=== PATIENT | female | born 1980 ===

== ENCOUNTER 2018-03-13 21:00 | Emergency (ER) | payer OTHER ==
[2018-03-13 21:01] VITALS: BMI 27.4
[2018-03-13 21:26] VITALS: BP 117/74; PULSE 73; RESP 18; TEMP 98.3; O2SAT 98
[2018-03-13] MEDS ORDERED: Sodium Chloride 0.9% 1,000 ML IV STA (21:42)
[2018-03-13 22:37] LABS: BASO % 0.6 % (0.0-2.0); EOS # 0.1 K/uL (0.0-0.7); EOS % 1.5 % (0.0-4.0); HEMOGLOBIN 12.3 g/dL (12.0-16.0); LYMPH % 42.7 % (20.0-40.0); MEAN CELL VOLUME 90.5 fl (81.0-99.0); MEAN CORPUSCULAR HEMOGLOBIN 30.2 pg (27.0-31.0); MEAN CORPUSCULAR HGB CONC 33.4 g/dL (33.0-37.0); MEAN PLATELET VOLUME 8.1 fl (7.2-11.7); MONO # 0.6 K/uL (0.0-0.8); NEUT # 3.3 K/uL (1.8-7.0); NEUT % 47.2 % (50.0-75.0); NRBC % 0.1 % (0.0-0.0); RBC 4.06 Mil/uL (3.80-5.20); RED CELL DISTRIBUTION WIDTH 12.4 % (11.5-14.5)
[2018-03-13 22:46] LABS: ALB/GLOB RATIO 1.1 (1.0-2.1); ALBUMIN 4.5 g/dL (3.5-5.0); ALT/SGPT 18 U/L (9-52); AST/SGOT 33 U/L (14-36); BLOOD UREA NITROGEN 15 mg/dl (7-17); CALCIUM 9.7 mg/dL (8.4-10.2); GFR NON-AFRICAN AMERICAN > 60; LIPASE 105 U/L (23-300)
[2018-03-13 22:46] LABS: SQUAMOUS EPITHIAL 4 /hpf (0-5); URINE BILIRUBIN NEGATIVE (NEGATIVE); URINE BLOOD MODERATE (NEGATIVE); URINE CALCIUM OXALATE CRYSTALS MOD /hpf (<OCC); URINE CLARITY CLOUDY (Clear); URINE COLOR YELLOW (YELLOW); URINE GLUCOSE (UA) NEG (NEGATIVE); URINE LEUKOCYTE ESTERASE NEG Leu/uL (Negative); URINE PROTEIN NEGATIVE (NEGATIVE); URINE UROBILINOGEN 0.2-1.0 mg/dL (0.2-1.0)
--- NOTE | 2018-03-14 00:12 | ED PDOC ---
HPI: Abdomen Time Seen by Provider: 03/13/18 21:28 Chief Complaint (Nursing): Abdominal Pain Chief Complaint (Provider): Abdominal Pain History Per: Patient History/Exam Limitations: no limitations Onset/Duration Of Symptoms: Days (x4) Outside of [place] travel?: No Associated Symptoms: Nausea Additional Complaint(s): 37 y/o female presents to the ED for evaluation of abdominal pain with associated nausea, onset x4 days ago. Patient reports pain is a burning sensation that worsens with eating. Patient states she took pepto bismol 2 hours [employer] with no relief. She has a history of similar pain but states it normally resolves in seconds to minutes; it has never lasted this long in the past. Denies fever, diarrhea, vomiting, urinary symptoms, recent travel, sick contacts, vaginal bleeding or discharge. Her last normal menstrual period was March 01. PMD: Rohith Past Medical History Reviewed: Historical Data, Nursing Documentation, Vital Signs Vital Signs: Last Vital Signs Temp 98.3 F 03/13/18 21:24 Pulse 73 03/13/18 21:24 Resp 18 03/13/18 21:24 BP 117/74 03/13/18 21:24 Pulse Ox 98 03/13/18 21:24 - Medical History PMH: No Chronic Diseases - Surgical History Surgical History: (x3) Other surgeries: Tubal ligation - Family History Family History: States: Unknown Family Hx - Home Medications Home Medications: Ambulatory Orders Medication Instructions Recorded Nitrofurantoin Macrocrystals 100 mg PO BID #10 cap 01/23/14 [Macrobid] Phenazopyridine HCl [Pyridium] 100 mg PO BID PRN #6 tab 01/23/14 Naproxen/Esomeprazole Mag [Vimovo 1 tab PO BID PRN #20 tab 03/14/18 20 mg-500 mg] - Allergies Allergies/Adverse Reactions: Allergies Allergy/AdvReac Type Severity Reaction Status Date / Time No Known Allergies Allergy Verified 03/13/18 21:24 Review of Systems ROS Statement: Except As Marked, All Systems Reviewed And Found Negative Constitutional: Negative for: Fever Gastrointestinal: Positive for: Nausea, Abdominal Pain. Negative for: Vomiting, Diarrhea Genitourinary Female: Negative for: Dysuria, Frequency, Incontinence, Vaginal Discharge, Vaginal Bleeding Physical Exam - Reviewed Nursing Documentation Reviewed: Yes Vital Signs Reviewed: Yes - Physical Exam Comments: GENERAL APPEARANCE: Patient is awake, alert, oriented x 3, in no distress. Resting comfortably SKIN: Warm, dry; (-) cyanosis. EYES: (-) conjunctival pallor, (-) scleral icterus. ENMT: Mucous membranes moist. Airway patent (-) stridor. NECK: Supple, FROM CHEST AND RESPIRATORY: (-) rales, (-) rhonchi, (-) wheezes; breath sounds equal bilaterally. Respirations nonlabored. HEART AND CARDIOVASCULAR: (-) irregularity ABDOMEN AND GI: Soft (-) distention. Bowel sounds active x4; (+) tenderness in RUQ, Epigastric and RLQ. (-) guarding, (-) rebound, (-) palpable masses, (-) CVA tenderness. EXTREMITIES: (-) deformity NEURO AND PSYCH: Mental status as above; (-) focal findings. Gait: steady. Speech: clear. (-) facial asymmetry (-) aphasia - Laboratory Results Result Diagrams: 03/13/18 22:25 03/13/18 22:25 Lab Results: Total Bilirubin 0.3 mg/dl (0.2-1.3) 03/13/18 22:25 AST 33 U/L (14-36) 03/13/18 22:25 ALT 18 U/L (9-52) 03/13/18 22:25 Alkaline Phosphatase 79 U/L (38-126) 03/13/18 22:25 Total Protein 8.5 G/DL (6.3-8.2) H 03/13/18 22:25 Albumin 4.5 g/dL (3.5-5.0) 03/13/18 22:25 Globulin 4.0 gm/dL (2.2-3.9) H 03/13/18 22:25 Albumin/Globulin Ratio 1.1 (1.0-2.1) 03/13/18 22:25 Lipase 105 U/L (23-300) 03/13/18 22:25 Urine Color Yellow (YELLOW) 03/13/18 22:26 Urine Clarity Cloudy (Clear) 03/13/18: Urine pH 6.0 (5.0-8.0) 03/13/18 22: Ur Specific Monroe 1.028 (1.003-1.030) 03/13/18 22:26 Urine Protein Negative mg/dL (NEGATIVE) 03/13/18 22: Urine Glucose (UA) Neg mg/dL (NEGATIVE) 03/13/18 22: Urine Ketones Negative mg/dL (NEGATIVE) 03/13/18 22:26 Urine Blood Moderate (NEGATIVE) 03/13/18 22:26 Urine Nitrate Negative (NEGATIVE) 03/13/18 22: Urine Bilirubin Negative (NEGATIVE) 03/13/18 22: Urine Urobilinogen 0.2-1.0 mg/dL (0.2-1.0) 03/13/18 22: Ur Leukocyte Esterase Neg Caleb/uL (Negative) 03/13/18 22: Urine RBC (Auto) 23 /hpf (0-3) H 03/13/18 22: Urine Microscopic WBC 2 /hpf (0-5) 03/13/18 22: Ur Squamous Epith Cells 4 /hpf (0-5) 03/13/18 22: Calcium Oxalate Crystal Mod /hpf (<OCC) H 03/13/18 22:26 Urine POC: Negative - ECG O2 Sat by Pulse Oximetry: 98 (RA) Pulse Ox Interpretation: Normal Medical Decision Making Medical Decision Making: Time: 21:45 Initial Impression: abdominal pain, r/o gallbladder disease Initial Plan: * CMP * Lactic acid * Lipase * CBC w/ diff * IV Fluids * Pepcid 40 mg * Toradol 30 mg * Zofran 4 mg * UA * US Gallbladder 2330 CBC and CMP grossly unremarkable. U/A (+) hematuria Patient resting comfortably awaiting U/S evaluation. 0120 Patient in U/S. 0210 U/S report per [facility] IMPRESSION: unremarkable exam. On re-evaluation, patient reports resolution of symptoms. On exam, patient remains AAOx3, in no acute distress. Lungs clear to auscultation, cardiac RRR, abdomen soft, non-tender, repeat neuro exam shows no focal findings. Vitals stable. Lab /Diagnostic results d/w the patient in great detail. Diagnosis of nausea and abdominal pain- resolved, hematuria d/w the patient. Based on history, exam and diagnostic results, plan will be for outpatient follow up with PMD/GI/urology. Patient instructed to follow-up with pmd / referral provided / the clinic in 1-2 days without fail. Advised to take medication as prescribed. Return to the emergency room at any time for any new or worsening symptoms. Patient states she fully agrees with and understands discharge instructions. States that she agrees with the plan and disposition. Verbalized and repeated discharge instructions and plan. I have given the patient opportunity to ask any additional questions. ---- Scribe Attestation: Documented by Richard Todd acting as a scribe for Renae Mandel PA-C. Provider Scribe Attestation: All medical record entries made by the Scribe were at my direction and perso isabella dictated by me. I have reviewed the chart and agree that the record accurately reflects my personal performance of the history, physical exam, medical decision making, and the department course for this patient. I have also personally directed, reviewed, and agree with the discharge instructions and disposition. Disposition - Clinical Impression Clinical Impression: Abdominal pain, Hematuria, Nausea - Patient ED Disposition Is Patient to be Admitted: No Counseled Patient/Family Regarding: Studies Performed, Diagnosis, Need For Followup, Rx Given - Disposition Referrals: Carlos Newberry MD [Family Provider] - Anders Olivarez MD, PhD [Staff Provider] - Anders Bazan Jr., MD [Staff Provider] - Disposition: Routine/Home Disposition Time: 02:40 Condition: STABLE Additional Instructions: The emergency medical care you received today was directed at your acute symptoms. If you were prescribed any medication, please fill it and take as directed. It may take several days for your symptoms to resolve. Return to the Emergency Department if your symptoms worsen, do not improve, or if you have any other problems. Please contact your doctor in 2 days for re-evaluation and follow up / or call one of the physicians/clinics you have been referred to that are listed on the Patient Visit Information form that is included in your discharge packet. Bring any paperwork you were given at discharge with you along with any medications you are taking to your follow up visit. Our treatment cannot replace ongoing med ical care by a primary care provider (PCP) outside of the emergency department. Prescriptions: Naproxen/Esomeprazole Mag [Vimovo 20 mg-500 mg] 1 tab PO BID PRN #20 tab PRN Reason: abdominal pain Instructions: Blood in the Urine (Hematuria) in Adults, Acute Abdomen (Belly Pain), Adult (DC), Nausea and Vomiting, Adult (DC) Forms: [place] ([place]an) Print Language: ESTONIAN - POA Present On Arrival: None Results - Lab Results Lab Results: 03/13/18 03/13/18 03/13/18 22:26 22:25 22:25 WBC RBC Hgb Hct MCV MCH MCHC RDW Plt Count MPV Neut % (Auto) Lymph % (Auto) Warren % (Auto) Eos % (Auto) Baso % (Auto) Neut # (Auto) Lymph # (Auto) Warren # (Auto) Eos # (Auto) Baso # (Auto) Sodium 138 Potassium 3.9 Chloride 100 Carbon Dioxide 24 Anion Gap 18 BUN 15 Creatinine 0.7 Est GFR ( Amer) > 60 Est GFR (Non-Af Amer) > 60 Random Glucose 87 Lactic Acid 0.7 Calcium 9.7 Total Bilirubin 0.3 AST 33 ALT 18 Alkaline Phosphatase 79 Total Protein 8.5 H Albumin 4.5 Globulin 4.0 H Albumin/Globulin Ratio 1.1 Lipase 105 Urine Color Yellow Urine Clarity Cloudy Urine pH 6.0 Ur Specific [place] 1.028 Urine Protein Negative Urine Glucose (UA) Neg Urine Ketones Negative Urine Blood Moderate Urine Nitrate Negative Urine Bilirubin Negative Urine Urobilinogen 0.2-1.0 Ur Leukocyte Esterase Neg Urine RBC (Auto) 23 H Urine Microscopic WBC 2 Ur Squamous Epith Cells 4 Calcium Oxalate Crystal Mod H 03/13/18 22:25 WBC 7.0 RBC 4.06 Hgb 12.3 Hct 36.8 MCV 90.5 MCH 30.2 MCHC 33.4 RDW 12.4 Plt Count 332 MPV 8.1 Neut % (Auto) 47.2 L Lymph % (Auto) 42.7 H Warren % (Auto) 8.0 Eos % (Auto) 1.5 Baso % (Auto) 0.6 Neut # (Auto) 3.3 Lymph # (Auto) 3.0 Warren # (Auto) 0.6 Eos # (Auto) 0.1 Baso # (Auto) 0.0 Sodium Potassium Chloride Carbon Dioxide Anion Gap BUN Creatinine Est GFR ( Amer) Est GFR (Non-Af Amer) Random Glucose Lactic Acid Calcium Total Bilirubin AST ALT Alkaline Phosphatase Total Protein Albumin Globulin Albumin/Globulin Ratio Lipase Urine Color Urine Clarity Urine pH Ur Specific Monroe Urine Protein Urine Glucose (UA) Urine Ketones Urine Blood Urine Nitrate Urine Bilirubin Urine Urobilinogen Ur Leukocyte Esterase Urine RBC (Auto) Urine Microscopic WBC Ur Squamous Epith Cells Calcium Oxalate Crystal
--- NOTE | 2018-03-14 17:02 | US ---
Date of service: 03/14/2018 HISTORY: abd pain, nausea COMPARISON: None. TECHNIQUE: Sonographic evaluation of the right upper quadrant of the abdomen. FINDINGS: LIVER: Measures 13.5 cm in length. Normal echogenicity of the liver parenchyma. No mass. No intrahepatic bile duct dilatation. GALLBLADDER: Completely contracted. Gallbladder wall poorly evaluated accordingly. No pericholecystic fluid collection evident. COMMON BILE DUCT: Measures 3.9 mm. No stones. No dilatation. PANCREAS: Unremarkable as visualized. No mass. No ductal dilatation. RIGHT KIDNEY: Measures 11.0 cm in length. Normal echogenicity. No calculus, mass, or hydronephrosis. AORTA: No aneurysmal dilatation. IVC: Unremarkable. OTHER FINDINGS: None . IMPRESSION: Gallbladder is contracted with wall poorly evaluated. No cholelithiasis or pericholecystic fluid collection evident. No biliary tree dilatation. Remainder of the examination is unremarkable. Concordant preliminary report from [place], 03/14/2018 2:09 a.m..
== END 2018-03-14 02:45 | disposition home or self-care (01) ==
LOC: H.ER 21:00
DX: R10.9 Unspecified abdominal pain (principal); R19.7 Diarrhea, unspecified; R11.0 Nausea
CPT/HCPCS: 76705; 80053; 81003; 81025; 83605; 83690; 85025; 96374; 96375; 99281; J1885; J2405; J7030